=== PATIENT | male | born 1975 | race Caucasian/White ===

== ENCOUNTER 2017-09-25 17:59 | Emergency (ER) | payer MEDICAID ==
[~2017-09-25] VITALS: Ht 172.7 cm; Wt 87.5 kg
[~2017-09-25 17:59] MED LIST: ALBU8.5H3 INH; BECL8.7A INH; PRED20TA PO
[2017-09-25 18:05] VITALS: Ht 172.7 cm; Wt 87.5 kg
[2017-09-25] MEDS ORDERED: ALBUTEROL 0.083% (NEB) 2.5 MG/3 ML AMP HHN STA (18:27)
[2017-09-25] MEDS ORDERED: predniSONE 20 MG TAB PO ONE (18:30)
[2017-09-25] MEDS ORDERED: IPRATROPIUM (NEB) 0.5 MG/2.5 ML AMP HHN ONE (18:30)
--- NOTE | 2017-09-25 20:47 | RADRPT ---
PROCEDURE: XR Chest. CLINICAL INDICATION: Shortness of breath. TECHNIQUE: Single frontal view. COMPARISON: 01/18/2016. FINDINGS: The lungs are clear. The heart size is normal. There is no pleural effusion. There is no pneumothorax. IMPRESSION: 1. Normal chest radiograph. 2. No change from 01/18/2016. RPTAT: QQ .Rocky Milton MD, MD Date Time Electronically viewed and signed by .Rocky Milton MD, on 09/25/2017 20:47 .R/
[2017-09-25] MEDS ORDERED: PRED20TA PO (20:56)
[2017-09-25] MEDS ORDERED: BUDE1AMP INHALATION (20:56)
[2017-09-25] MEDS ORDERED: ALBU18HF INHALATION (20:56)
[2017-09-25] MEDS ORDERED: FLUT12HF IH (20:56)
[2017-09-25] MEDS ORDERED: PULM180 INHALATION (20:56)
--- NOTE | 2017-09-25 21:01 | ERD ---
ER Documentation Chief Complaint Chief Complaint ACUTE ASTHMA WITH WHEEZES, SOB HPI This 42-year-old male presents with shortness of breath and cough going on for the last couple of days. States he has been getting asthma exacerbations more frequently lately. Denies any fever chills or chest pain. ROS All systems reviewed and are negative except as per history of present illness. Medications Home Meds Active Scripts Salmeterol Xinaf-Fluticasone* (Advair HFA*) 45/212 Aerosol Inhaler, 2 INH IH BID , #1 INHALER Prov:NAOMI MILLER DO 09/25/17 Budesonide (Pulmicort Flexhaler) 180 Mcg Aer.pow.ba, 1 PUFF INHALATION BID, #1 EA Prov:NAOMI MILLER DO 09/25/17 Budesonide* (Pulmicort*) 1 Mg/2 Ml Ampul.neb, 1 MG INHALATION BID, #60 AMP Prov:NAOMI MILLER DO 09/25/17 Prednisone (Prednisone) 20 Mg Tab, 40 MG PO DAILY, #4 TAB Prov:NAOMI MILLER DO 09/25/17 Albuterol Sulfate* (Ventolin HFA*) 18 Gm Hfa.aer.ad, 2 PUFF INHALATION Q4H, #1 INHALER Prov:NAOMI MILLER DO 09/25/17 Prednisone* (Prednisone*) 20 Mg Tab, 40 MG PO DAILY for 4 Days, TAB With food or milk Prov:MINH SWAIN MD 01/18/16 Albuterol Sulfate* (Proair HFA*) 8.5 Gm Hfa.aer.ad, 2 PUFF INH Q4H Y for WHEEZING AND SOB, #1 INHALER Prov:MINH SWAIN MD 01/18/16 Beclomethasone Dip* (Qvar 40*) 7.3 Gm Inha, 1 PUFF INH BID, #1 INHALER Prov:MINH SWAIN MD 01/18/16 Allergies Allergies: Coded Allergies: No Known Drug Allergies (Verified Allergy, Unknown, 01/18/16) PMhx/Soc History of Surgery: No Anesthesia Reaction: No Hx Neurological Disorder: No Hx Respiratory Disorders: Yes (ASTHMA) Hx Cardiac Disorders: No Hx Psychiatric Problems: No Hx Miscellaneous Medical Probl: No Hx Alcohol Use: No Hx Substance Use: No Hx Tobacco Use: No Smoking Status: Never smoker Physical Exam Vitals Vital Signs Date Time Temp Pulse Resp B/P Pulse Ox O2 Delivery O2 Flow Rate FiO2 09/25/17 18:36 100 26 100 Non Rebreather Mask 15.0 100 09/25/17 18:05 98.6 113 26 148/83 94 Physical Exam Const: [] Severe respiratory distress, appears very short of breath Resp: Tight sounding lungs with both expiratory and inspiratory wheezes, tachypnea and prolonged expiratory time Cardio: Regular rate and rhythm, no murmurs Skin: No petechiae or rashes Ext: No cyanosis, or edema Neur: Awake and alert Psych: Normal Mood and Affect Results 24 hrs Current Medications Medications (Trade) Dose Ordered Sig/Douglas Route PRN Reason Start Time Stop Time Status Last Admin Dose Admin Albuterol (Proventil 0.083% (Neb)) 15 mg ONCE STAT HHN 09/25/17 18:27 09/25/17 18:29 DC 09/25/17 18:36 Ipratropium [place] (Atrovent 0.02% (Neb)) 1 mg ONCE ONCE HHN 09/25/17 18:30 09/25/17 18:31 DC 09/25/17 18:35 Prednisone (Prednisone) 60 mg ONCE ONCE PO 09/25/17 18:30 09/25/17 18:31 DC 09/25/17 18:52 Procedures/MDM Acute asthma exacerbation. Patient now with moderate intermittent asthma. He was treated with 50 mg of albuterol as well as 1 mg of Atrovent. He is also given 60 mg prednisone pill after this had no wheezing and no shortness of breath. This was a profound improvement from his initial distress. And also discharging with an Advair inhaler as well as albuterol inhaler and 4 days of prednisone. I am also adding an Advair prescription. If he cannot fill this I have given him Pulmicort. I have instructed to follow-up with a primary care doctor next 2-3 days and provided options for follow-up. Interpretation: I see no acute process. I see no infiltrate, no pulmonary edema , no pneumothorax, no fractures Departure Diagnosis: Primary Impression: Moderate intermittent asthma Additional Impression: Acute asthma exacerbation Condition: Stable Patient Instructions: Asthma Medications Referrals: COMM[facility]ITY CLIN[facility] YOU HAVE RECEIVED A MEDICAL SCREENING EXAM AND THE RESULTS INDICATE THAT YOU DO NOT HAVE A CONDITION THAT REQUIRES URGENT TREATMENT IN THE EMERGENCY DEPARTMENT. FURTHER EVALUATION AND TREATMENT OF YOUR CONDITION CAN WAIT UNTIL YOU ARE SEEN IN YOUR DOCTORS OFFICE WITHIN THE NEXT 1-2 DAYS. IT IS YOUR RESPONSIBILITY TO MAKE AN APPOINTMENT FOR FOLOW-UP CARE. IF YOU HAVE A PRIMARY DOCTOR --you should call your primary doctor and schedule an appointment IF YOU DO NOT HAVE A PRIMARY DOCTOR YOU CAN CALL OUR PHYSICIAN REFERRAL HOTLINE AT IF YOU CAN NOT AFFORD TO SEE A PHYSICIAN YOU CAN CHOSE FROM THE FOLLOWING [facility] [address] [facility] [address] [facility] [facility] [address] [facility] [address] [facility] [address] [facility]. [facility]. [address] Additional Instructions: Llame al doctor MAANA y tammy tanisha NAKUL PARA DENTRO DE 2-3 FISHER.Dgale a la secretaria que nosotros le instruimos hacer esta nakul.Avise o llame si carty condicin se empeora antes de la nakul. Regresa aqui si peor o no mejor. NAOMI MILLER DO Sep 25, 2017 21:01
[2017-09-25 21:31] VITALS: BP 122/76; PULSE 91; RESP 18; TEMP 98.5
== END 2017-09-25 21:32 | disposition home or self-care (01) ==
LOC: E/R 17:59
DX: J45.40 Moderate persistent asthma, uncomplicated (principal)
CPT/HCPCS: 71010; 94644; J7512; Z7502; Z7610

== ENCOUNTER 2018-01-01 18:46 | Emergency (ER) | END 2018-01-01 20:24 | disposition home or self-care (01) ==

== ENCOUNTER 2018-11-18 09:18 | Emergency (ER) | END 2018-11-18 10:25 | disposition home or self-care (01) ==

== ENCOUNTER 2019-01-23 16:22 | Emergency (ER) | payer MEDICAID ==
[~2019-01-23] VITALS: Wt 91.3 kg
[~2019-01-23 16:22] MED LIST changes: +ALBU18HF INHALATION; -ALBU8.5H3 INH; +ALBU8.5H8 INH; +BUDE1AMP INHALATION; +CLIN300C10 PO; +FLUT12HF IH; +FLUT12HF2 IH; +HYDR-4011 PO; +PULM180 INHALATION
[2019-01-23 16:30] VITALS: BP 143/88; PULSE 89; RESP 20
--- NOTE | 2019-01-23 22:59 | ERD ---
ER Documentation Chief Complaint Chief Complaint LEFT SHOULDER PAIN S/P IMMUNIZATION X3DAYS AGO HPI This is a 43-year-old male presents emergency department with left shoulder pain. Stated this started after he had a shot of pneumonia vaccine 3 days ago. Right-handed. Denies headache, head injury, loss of consciousness, dizziness, neck pain, neck stiffness, throat pain, difficulty swallowing, difficulty breathing lying flat, shoulder pain, chest pain, back pain, abdominal pain, nausea, vomiting, constipation, diarrhea, urinary symptoms, loss of bowel and bladder control, trauma, injury, falls, difficulty walking due to pain, numbness or tingling sensation, calf pain, recent travel, recent major surgery in the last 3 weeks, calf pain, recent long travel, recent exposure to any illness, recent antibiotic use in the last 3 months, fever, chills, seizures. Past medical history: Surgical history: Social: Denies smoking, use of alcoholic beverages, use of illegal drugs. ROS All systems reviewed and are negative except as per history of present illness. Medications Home Meds Active Scripts Ibuprofen* (Motrin*) 800 Mg Tab, 800 MG PO Q6H PRN for PAIN AND OR ELEVATED TEMP, #30 TAB Prov:LUIS DANIEL MUSE F 01/23/19 Mupirocin* (Bactroban*) 2% -22 Gram Oint...g., 1 APPLIC TOP BID for 7 Days, EA Prov:SIDNEYLUIS DANIEL HERNANDEZ F 01/23/19 Cephalexin* (Keflex*) 500 Mg Capsule, 500 MG PO TID for 7 Days, CAP Prov:PASILABRAULIO GASTELUMAR F 01/23/19 Clindamycin Hcl* (Clindamycin Hcl*) 300 Mg Capsule, 300 MG PO TID for bursitis for 10 Days, #30 CAP 0 Refills Prov:FRANKIE JOSHI 11/18/18 Hydrocodone/Acetaminophen ([place] 5-325 Tablet) 1 Each Tablet, 1 TAB PO Q6H PRN for PAIN, #20 TAB 0 Refills Prov:FRANKIE JOSHI 11/18/18 Salmeterol Xinaf-Fluticasone* (Advair HFA*) 115/21 Aerosol Inhaler, 2 INH IH BID, #1 INHALER Prov:KEYONNA ALLISON MD 01/01/18 Albuterol Sulfate* (Proair HFA*) 8.5 Gm Hfa.aer.ad, 2 PUFF INH Q4, #1 INHALER Prov:KEYONNA ALLISON MD 01/01/18 Prednisone* (Prednisone*) 20 Mg Tab, 60 MG PO DAILY for 5 Days, TAB Prov:KEYONNA ALLISON MD 01/01/18 Salmeterol Xinaf-Fluticasone* (Advair HFA*) 45/212 Aerosol Inhaler, 2 INH IH BID, #1 INHALER Prov:NAOMI MILLER DO 09/25/17 Budesonide (Pulmicort Flexhaler) 180 Mcg Aer.pow.ba, 1 PUFF INHALATION BID, #1 EA Prov:NAOMI MILLER DO 09/25/17 Budesonide* (Pulmicort*) 1 Mg/2 Ml Ampul.neb, 1 MG INHALATION BID, #60 AMP Prov:NAOMI MILLER DO 09/25/17 Prednisone (Prednisone) 20 Mg Tab, 40 MG PO DAILY, #4 TAB Prov:NAOMI MILLER DO 09/25/17 Albuterol Sulfate* (Ventolin HFA*) 18 Gm Hfa.aer.ad, 2 PUFF INHALATION Q4H, #1 INHALER Prov:NAOMI MILLER DO 09/25/17 Prednisone* (Prednisone*) 20 Mg Tab, 40 MG PO DAILY for 4 Days, TAB With food or milk Prov:MINH SWAIN MD 01/18/16 Albuterol Sulfate* (Proair HFA*) 8.5 Gm Hfa.aer.ad, 2 PUFF INH Q4H PRN for WHEEZING AND SOB, #1 INHALER Prov:MINH SWAIN MD 01/18/16 Beclomethasone Dip* (Qvar 40*) 7.3 Gm Inha, 1 PUFF INH BID, #1 INHALER Prov:MINH SWAIN MD 01/18/16 Allergies Allergies: Coded Allergies: No Known Drug Allergies (Verified Allergy, Unknown, 11/18/18) PMhx/Soc Medical and Surgical Hx: pt denies Surgical Hx History of Surgery: No Anesthesia Reaction: No Hx Neurological Disorder: No Hx Respiratory Disorders: Yes (ASTHMA) Hx Cardiac Disorders: No Hx Psychiatric Problems: No Hx Miscellaneous Medical Probl: No Hx Alcohol Use: No Hx Substance Use: No Hx Tobacco Use: No Smoking Status: Never smoker Physical Exam Vitals Vital Signs Date Temp Pulse Resp B/P (MAP) Pulse Ox O2 O2 Flow FiO2 Time Delivery Rate 01/23/19 101.2 89 20 143/88 98 16:30 (106) Physical Exam Const: No acute distress Head: Atraumatic Eyes: Normal Conjunctiva ENT: Normal External Ears, Nose and Mouth. Neck: Full range of motion. No meningismus. Resp: Clear to auscultation bilaterally Cardio: Regular rate and rhythm, no murmurs Abd: Soft, non tender, non distended. Normal bowel sounds Skin: No petechiae or rashes Back: No midline or flank tenderness Ext: No cyanosis, or edema. Left shoulder has redness/erythema to the proximal part of the humerus. Left shoulder has no redness and has good and full range of motion. No signs of septic joint. Left elbow is unremarkable. Left radial pulses good. Has good and full function of his left hand. Neur: Awake and alert. No neurological deficits. Psych: Normal Mood and Affect Results 24 hrs Current Medications Medications Dose Sig/Douglas Start Time Status Last (Trade) Ordered Route PRN Stop Time Admin Dose Reason Admin Ibuprofen 800 mg ONCE ONCE 01/23/19 DC 01/23/19 (Motrin) PO 23:00 23:08 01/23/19 23:01 1,000 mg ONCE STAT 01/23/19 DC 01/23/19 Acetaminophen PO 23:00 23:09 (Tylenol 01/23/19 23:01 Tab) Procedures/MDM I offered diagnostic tests with patient and family member strongly refused. Stated that they prefer to be prescribed with antibiotic and will just follow-up with his primary care doctor because they do not want to wait much longer. Diagnostic tests: Clinical exam. Treatment: Motrin. Tylenol. Re-evaluation: Denies pain. Good and full range of motion of the left shoulder. Differential diagnosis I have low suspicion for septic joint, sepsis. Final diagnosis: Skin infection to injection site. Prescription: Keflex. Motrin. Bactroban ointment. Follow-up with PCP in the next 24-48 hours. Come back here in the emergency department for any new symptoms or any worsening symptoms. All questions and concerns were answered. Patient and family members verbalized understanding and agreed with plan of care. Hemodynamically stable on discharge. Departure Diagnosis: Primary Impression: Skin infection Condition: Stable Additional Instructions: Follow-up with PCP in the next 24-48 hours. Come back here in the emergency dep artment for any new symptoms or any worsening symptoms. LUIS DANIEL MUSE Jan 23, 2019 22:59
[2019-01-23] MEDS ORDERED: IBUPROFEN 800 MG TAB PO ONE (23:00)
[2019-01-23] MEDS ORDERED: ACETAMINOPHEN 500 MG TAB PO STA (23:00)
[2019-01-23] MEDS ORDERED: IBUP800T48 PO (23:35)
[2019-01-23] MEDS ORDERED: CEPH-443 PO (23:35)
[2019-01-23] MEDS ORDERED: MUPI22OI2 TOP (23:35)
== END 2019-01-23 23:50 | disposition home or self-care (01) ==
LOC: FTE 16:22
DX: L08.9 Local infection of the skin and subcutaneous tissue, unspecified (principal); J45.909 Unspecified asthma, uncomplicated
CPT/HCPCS: Z7502; Z7610; 99283